=== PATIENT | female | born 1980 ===

== ENCOUNTER 2020-11-23 09:13 | Inpatient (IN) | payer MEDICAID ==
[~2020-11-23] VITALS: Ht 170.2 cm; Wt 63.5 kg
[2020-11-23 10:15] LABS: ANION GAP 14 mmol/L (8-16); CALCIUM, TOTAL 9.2 mg/dL (8.8-10.5); CARBON DIOXIDE 26 mmol/L (22-29); CHLORIDE 99 mmol/L (98-107); GLOMERULAR FILTR. RATE CALC > 60 mL/min (>60); GLUCOSE,RANDOM 83 mg/dL (70-110); POTASSIUM 4.1 mmol/L (3.5-5.1); SODIUM SERUM 139 mmol/L (136-145); UREA NITROGEN, BLOOD 14 mg/dL (7-18)
[2020-11-23 10:26] LABS: ALANINE AMINOTRANSFERASE 43 U/L (12-78); ALBUMIN 4.7 g/dL (3.4-5.0); ALKALINE PHOSPHATASE 69 U/L (46-116); ASPARTATE AMINOTRANSFERASE 53 U/L (15-37); BILIRUBIN,TOTAL 0.4 mg/dL (0.1-1.0); HCG,QUANTITATIVE < 1 mIU/mL (0-6); TOTAL PROTEIN, SERUM 8.7 g/dL (6.4-8.2)
[2020-11-23 10:38] LABS: BASOPHILS % (AUTO) 0.6 % (0.0-2.0); EOSINOPHILS % (AUTO) 0.5 % (1.0-6.0); LYMPHOCYTES # (AUTO) 1.7 K/uL (1.0-4.8); LYMPHOCYTES % (AUTO) 25.1 % (22.0-44.0); MEAN CORPUSCULAR HEMOGLOBIN 34.6 pg (26.0-34.0); MEAN CORPUSCULAR VOLUME 102 fL (80-100); MONOCYTES # (AUTO) 0.4 K/uL (0.1-1.0); MONOCYTES % (AUTO) 6.3 % (2.0-9.0); NEUTROPHILS # (AUTO) 4.6 K/uL (1.8-7.7); NEUTROPHILS % (AUTO) 67.5 % (40.0-70.0); PLATELET COUNT (AUTO) 212 K/uL (150-450); RED BLOOD CELL COUNT(AUTO) 4.33 MIL/uL (4.00-5.20); RED CELL DISTRIBUTION WIDTH 13.9 % (11.5-14.5)
[2020-11-23 10:55] LABS: AMPHET/METH SCREEN,URINE NEGATIVE (NEGATIVE); BARBITURATE SCREEN, URINE NEGATIVE (NEGATIVE); BENZODIAZEPINES SCREEN,URINE NEGATIVE (NEGATIVE); CANNABINOID SCREEN,URINE NEGATIVE (NEGATIVE); COCAINE SCREEN,URINE NEGATIVE (NEGATIVE); METHADONE SCREEN, URINE NEGATIVE (NEGATIVE); OPIATE SCREEN,URINE NEGATIVE (NEGATIVE)
[2020-11-23 10:58] LABS: PHENCYCLIDINE SCREEN,URINE NEGATIVE (NEGATIVE)
[2020-11-23 11:28] LABS: COVID AG,FIA SOURCE NASOPHARYNGEAL
[2020-11-23] MEDS: LORazepam 2 MG TABLET PO PRN (21:39)
[2020-11-23 21:55] VITALS: BP 145/65
[2020-11-23 21:57] VITALS: BP 145/65
[2020-11-23 22:39] VITALS: BP 133/78
[2020-11-23 22:40] VITALS: BP 133/78
[2020-11-23] MEDS ORDERED: PNEUMOCOCCAL VACCINE POLYVALENT 0.5 ML VIAL [PPSV23] IM ONE (23:30)
[2020-11-23 23:35] VITALS: BP 126/74
[2020-11-24] VITALS (9 sets, daily range): BP systolic 126–141; BP diastolic 66–85
[2020-11-24] MEDS: LORazepam 2 MG TABLET PO PRN ×4 (00:10→17:42)
[2020-11-24] MEDS ORDERED: GuaiFENesin/D-METHORPHAN [SUGAR-FREE] 200-20MG/10 ML SYRUP UDCUP PO PRN (07:30)
[2020-11-24] MEDS ORDERED: LOPERAMIDE HCL 2 MG CAPSULE PO PRN (07:30)
[2020-11-24] MEDS ORDERED: MAGNESIUM HYDROXIDE SUSPENSION 30 ML UDCUP PO PRN (07:30)
[2020-11-24] MEDS ORDERED: DOCUSATE SODIUM 100 MG CAPSULE PO PRN (07:30)
[2020-11-24] MEDS ORDERED: CloNIDine HCL 0.1 MG TABLET PO PRN (07:30)
[2020-11-24] MEDS ORDERED: ACETAMINOPHEN 325 MG TABLET PO PRN (07:30)
[2020-11-24] MEDS ORDERED: PETROLATUM,WHITE 28 GM JELLY TP PRN (07:30)
[2020-11-24] MEDS ORDERED: MAG HYDROX/AL HYDROX/SIMETH ES 30 ML SUSPENSION UDCUP PO PRN (07:30)
[2020-11-24] MEDS ORDERED: ALBUTEROL SULFATE HFA 90 MCG/PUFF 8 GM INHALER IH PRN (07:30)
[2020-11-24] MEDS ORDERED: IBUPROFEN 400 MG TABLET PO PRN (07:30)
[2020-11-24] MEDS ORDERED: ONDANSETRON HCL 4 MG TABLET PO PRN (07:30)
[2020-11-24 07:56] LABS: CHOL/HDL RATIO 2.1 (3.9-5.7)
[2020-11-24] MEDS: LORazepam 2 MG TABLET PO SCH ×4 (09:21→20:31)
[2020-11-24] MEDS ORDERED: ESCITALOPRAM OXALATE 10 MG TABLET PO SCH (11:00)
[2020-11-24] MEDS: NICOTINE 14 MG/24 HOUR PATCH TD PRN (13:15)
[2020-11-24] MEDS: ESCITALOPRAM OXALATE 10 MG TABLET PO SCH (14:01)
[2020-11-25 05:25] VITALS: BP 122/95
[2020-11-25 05:27] VITALS: BP 122/95
[2020-11-25] MEDS: LORazepam 2 MG TABLET PO PRN (05:31)
[2020-11-25] MEDS: LORazepam 2 MG TABLET PO SCH ×4 (08:13→20:20)
[2020-11-25] MEDS: ESCITALOPRAM OXALATE 10 MG TABLET PO SCH (08:13)
[2020-11-25] MEDS ORDERED: ESCITALOPRAM OXALATE 10 MG TABLET PO SCH (09:00)
[2020-11-25] MEDS: NICOTINE 14 MG/24 HOUR PATCH TD PRN (10:23)
[2020-11-25 12:29] VITALS: BP 127/89
[2020-11-25 16:27] VITALS: BP 116/73
[2020-11-25 17:43] VITALS: BP 116/73
[2020-11-26 00:10] VITALS: BP 112/70
[2020-11-26] MEDS ORDERED: LORazepam 1 MG TABLET PO PRN (07:00)
[2020-11-26 08:33] VITALS: BP 118/80
[2020-11-26] MEDS: ESCITALOPRAM OXALATE 10 MG TABLET PO SCH (08:38)
[2020-11-26] MEDS ORDERED: LORazepam 1 MG TABLET PO SCH (09:00)
[2020-11-26] MEDS ORDERED: ESCI-8 PO (10:09)
[2020-11-26] MEDS: NICOTINE 14 MG/24 HOUR PATCH TD PRN (10:15)
[2020-11-27] MEDS ORDERED: LORazepam 1 MG TABLET PO PRN (07:00)
== END 2020-11-26 13:30 | disposition home or self-care (01) | DRG 751 ==
LOC: EMS 09:13 → B2S 17:58
DX: F33.2 Major depressive disorder, recurrent severe without psychotic features (principal); E78.5 Hyperlipidemia, unspecified; F10.229 Alcohol dependence with intoxication, unspecified; I10 Essential (primary) hypertension; R45.851 Suicidal ideations; R74.01 Elevation of levels of liver transaminase levels; Z20.822 Contact with and (suspected) exposure to COVID-19; Z59.0 Homelessness; Z79.899 Other long term (current) drug therapy; Z28.21 Immunization not carried out because of patient refusal
CPT/HCPCS: 87426; G0480